=== PATIENT | female | born 1995 | race African-American/Black ===

== ENCOUNTER 2022-03-26 10:42 | Emergency (ER) | payer MEDICAID, OTHER ==
[~2022-03-26] VITALS: Ht 157.5 cm; Wt 87.0 kg
[2022-03-26 10:53] VITALS: BP 132/73
[2022-03-26] MEDS ORDERED: ACETAMINOPHEN 325MG TABLET PO ONE (12:45)
== END 2022-03-26 14:20 | disposition home or self-care (01) ==
LOC: ER 10:51
DX: B34.9 Viral infection, unspecified (principal); J45.909 Unspecified asthma, uncomplicated; Z20.822 Contact with and (suspected) exposure to COVID-19; Z91.018 Allergy to other foods
CPT/HCPCS: 81025; 87070; 87426; 87430; 87804; 99283; C9803

== ENCOUNTER 2023-07-18 20:53 | Emergency (ER) | payer OTHER ==
[~2023-07-18] VITALS: Ht 167.6 cm; Wt 80.0 kg
[~2023-07-18 20:53] MED LIST: ALBU6.7H15 INH; FORM20VI4 INH; IPRA3AMP9 HHN; MED4 MT; MONT-46 PO
[2023-07-18] MEDS ORDERED: PREDNISONE 20MG TABLET PO STA (21:53)
[2023-07-18] MEDS ORDERED: IPRATROPIUM BROMIDE (0.02%) 0.5MG/2.5ML NEB HHN STA (21:53)
[2023-07-18 22:06] VITALS: TEMP 98.7
[2023-07-18 22:10] VITALS: PULSE 120; RESP 20; O2SAT 98
[2023-07-18] MEDS: ALBUTEROL (0.083%) 2.5MG/3ML NEB HHN SCH ×3 (22:10→23:01)
[2023-07-18] MEDS ORDERED: MAGNESIUM 2 G PREMIX 50 ML IV ONE (22:30)
[2023-07-18 22:40] VITALS: PULSE 116; RESP 20; O2SAT 98
[2023-07-18 23:10] VITALS: PULSE 118; RESP 20; O2SAT 99
[2023-07-19] MEDS ORDERED: P20 MT (03:39)
[2023-07-19 05:20] VITALS: BP 134/77; PULSE 96; RESP 19
== END 2023-07-19 05:20 | disposition home or self-care (01) ==
LOC: ER 20:53
DX: J45.901 Unspecified asthma with (acute) exacerbation (principal); Z79.899 Other long term (current) drug therapy
CPT/HCPCS: 93005; 96365; 99285; 71045; 94640; J7512; J3475; Z7610 ×3

== ENCOUNTER 2024-06-01 10:08 | Emergency (ER) | payer SELFPAY ==
[~2024-06-01] VITALS: Ht 157.5 cm; Wt 91.0 kg
[~2024-06-01 10:08] MED LIST changes: -MED4 MT; +METH4TAB95 MT; +P20 MT
[2024-06-01 10:48] VITALS: BP 123/70; PULSE 106; RESP 18; TEMP 97.6; O2SAT 97
[2024-06-01 12:19] LABS: CLARITY URINE CLOUDY (CLEAR); COLOR URINE ORANGE (YELLOW); GLUCOSE URINE NEGATIVE (NEGATIVE); KETONES URINE TRACE (NEGATIVE); LEUKOCYTE ESTERASE URINE 3+ (NEGATIVE); NITRITE URINE POSITIVE (NEGATIVE); OCCULT BLOOD URINE 3+ (NEGATIVE); PROTEIN URINE 1+ (NEGATIVE); SPECIFIC GRAVITY URINE 1.014 (1.005-1.030); UROBILINOGEN URINE 0.2 E.U./dL (0.2-1.0)
[2024-06-01 12:31] LABS: SQUAMOUS EPITHELIAL CELL URINE 1+ /lpf (RARE/1+); WBC URINE TNTC /hpf (0-2)
[2024-06-01 12:32] LABS: BACTERIA URINE 4+; YEAST URINE NONE SEEN
[2024-06-01] MEDS ORDERED: PHEN-815 MT (13:25)
[2024-06-01] MEDS ORDERED: SULF-13 MT (13:25)
[2024-06-01] MEDS ORDERED: ACET-2708 MT (13:25)
== END 2024-06-01 14:01 | disposition home or self-care (01) ==
LOC: ER 10:08
DX: M54.50 Low back pain, unspecified (principal); J45.909 Unspecified asthma, uncomplicated; Z91.018 Allergy to other foods; Z79.899 Other long term (current) drug therapy
CPT/HCPCS: 76770; 81003; 81025; 87077; 87186; 99284